=== PATIENT | female | born 2000 | race Caucasian/White ===

== ENCOUNTER 2025-06-25 04:13 | Emergency (ER) | payer OTHER ==
[~2025-06-25] VITALS: Ht 170.2 cm; Wt 84.1 kg
[2025-06-25 04:23] VITALS: BP 110/73; PULSE 77; RESP 16; TEMP 98.1; O2SAT 100
[2025-06-25 04:45] LABS: PLATELET COUNT (AUTO) 304 K/uL (150-450); RED BLOOD CELL COUNT(AUTO) 4.32 MIL/uL (4.00-5.20); RED CELL DISTRIBUTION WIDTH 13.7 % (11.5-14.5); WHITE BLOOD COUNT (AUTO) 5.8 K/uL (4.5-11.0)
[2025-06-25 04:52] LABS: CALCIUM, TOTAL 8.4 mg/dL (8.8-10.5); CREATININE 0.73 mg/dL (0.60-1.30); GLOMERULAR FILTR. RATE CALC > 60 mL/min (>60); GLUCOSE,RANDOM 87 mg/dL (70-110); SODIUM SERUM 138 mmol/L (136-145); UREA NITROGEN, BLOOD 10 mg/dL (7-18)
[2025-06-25 04:58] LABS: APPEARANCE,URINE CLEAR (CLEAR); GLUCOSE, URINE (UA) NEGATIVE (NEGATIVE); LEUKOCYTE ESTERASE ,URINE NEGATIVE (NEGATIVE); NITRATE,URINE NEGATIVE (NEGATIVE); OCCULT BLOOD,URINE NEGATIVE (NEGATIVE); SPECIFIC GRAVITIY, URINE 1.007 (1.003-1.030)
[2025-06-25] MEDS: LIDOCAINE 5% TRANSDERMAL PATCH TD ONE (05:48)
[2025-06-25] MEDS: IBUPROFEN 400 MG TABLET PO ONE (05:48)
== END 2025-06-25 06:45 | disposition home or self-care (01) ==
LOC: EMS 05:20
DX: R07.1 Chest pain on breathing (principal); F41.9 Anxiety disorder, unspecified; Z98.890 Other specified postprocedural states
CPT/HCPCS: 71045; 80048; 81003; 84703; 85025; 93005; 99285; 36415-L1; 36415-TC